=== PATIENT | female | born 1940 | race Hispanic/Latino ===

== ENCOUNTER → 2019-07-03 | Outpatient (CLI) | payer OTHER | END | disposition home or self-care (01) | LOC: SHCH 09:45 | PROVIDERS: ATTEND Internal Medicine Cardiovascular Disease | DX: I25.10 Atherosclerotic heart disease of native coronary artery without angina pectoris (principal); I25.5 Ischemic cardiomyopathy | CPT/HCPCS: 93306 ==

== ENCOUNTER 2019-08-14 06:52 | Observation (INO) | payer OTHER ==
[2019-08-12 10:24] VITALS: BP 151/62
[2019-08-12 10:35] LABS: BASOPHILS % (AUTO) 0.6 % (0.0-5.0); HEMATOCRIT 39.9 % (36-48); LYMPHOCYTES % (AUTO) 30.3 % (21.0-51.0); MEAN CORPUSCULAR HEMOGLOBIN 29.5 pg (27.0-33.0); MEAN CORPUSCULAR HGB CONC 31.8 g/dL (32.0-36.0); MEAN CORPUSCULAR VOLUME 92.6 fL (79-99); MONOCYTES % (AUTO) 10.5 % (3.0-13.0); NEUTROPHILS % (AUTO) 56.3 % (40.0-77.0); PLATELET COUNT (AUTO) 196 K/uL (130-400); RED BLOOD CELL COUNT(AUTO) 4.31 MIL/uL (4.00-5.50); RED CELL DISTRIBUTION WIDTH 12.6 % (11.0-15.5); WHITE BLOOD COUNT (AUTO) 6.6 K/uL (4.8-10.8)
[2019-08-12 10:44] LABS: CREATININE 1.2 mg/dL (0.5-1.5); POTASSIUM 4.6 mmol/L (3.5-5.1)
[2019-08-12 10:52] LABS: INR 1.02 (0.85-1.15); PARTIAL THROMBOPLASTIN TIME 28.2 SEC (26.3-35.5); PROTHROMBIN TIME 10.7 SEC (9.6-11.6)
[~2019-08-14] VITALS: Ht 152.4 cm; Wt 63.1 kg
[2019-08-14] VITALS (12 sets, daily range): BP systolic 112–163; BP diastolic 54–86
[~2019-08-14 06:52] MED LIST: AMLO5TAB9 PO; ASPI-555 PO; LOSA100T58 PO; METF-444 PO; METO-391 PO; ROSU20TA31 PO; SODIUM CHLORIDE 0.9% 1000ML 1,000 ML IV SCH
--- NOTE | 2019-08-14 07:05 | NUR ---
PROCEDURE PT HERE FOR PROCEDURE. NERVOUS. DENIES ANY PAIN, SOB. FAMILY AT BEDSIDE.
[2019-08-14] MEDS ORDERED: LIDOCAINE HCL 2% 20ML ONE (09:59)
[2019-08-14] MEDS ORDERED: MIDAZOLAM HCL 1 MG/ML 2ML VIAL ONE (09:59)
[2019-08-14] MEDS ORDERED: MEPERIDINE-PF 25 MG/ML SYG ONE (09:59)
[2019-08-14] MEDS ORDERED: HEPARIN SODIUM 1000UNIT/ML 10ML VIAL ONE (09:59)
[2019-08-14] MEDS ORDERED: LIDOCAINE PF 2% 5ML ABBOJECT ONE (13:48)
[2019-08-14] MEDS ORDERED: IOHEXOL-350 50ML VIAL IV ONE (13:53)
[2019-08-14] MEDS ORDERED: PROTAMINE SULFATE 10 MG/ML 25ML VIAL IV ONE (14:01)
--- NOTE | 2019-08-14 14:45 | NUR ---
REPORT HANDOFF COMMUNICATION RECEIVED FROM JAMILAH ZAIDI RN AT BEDSIDE USING SBAR. PATIENT LAYING IN BED WAITING TO BE TRANSFERRED TO PROPERTY AND CASUALTY INSURANCE AGENT. PATIENT'S DAUGHTER AT BEDSIDE. Addendum: 08/14/19 at 1618 by AMAURI RAMÍREZ RN RN WRONG PATIENT
--- NOTE | 2019-08-14 15:00 | NUR ---
PATIENT ARRIVED PATIENT BROUGHT TO DAY PATIENT VIA BED FROM PSYCHIATRIC SECURITY NURSE BY SNEHAL SALMON. PATIENT AAOX3, RESPIRATIONS UNLABORED, VITAL SIGNS STABLE, DENIES ANY PAIN. DRESSING TO RIGHT GROIN DRY/INTACT. NO HEMATOMA, NO DRAINAGE NOTED, AREA SOFT AND NONTENDER. FAMILY AT BEDSIDE.
--- NOTE | 2019-08-14 15:30 | NUR ---
DR SORIANO CALLED DR SORIANO AND INFORMED HIM THAT PATIENT IS BEING ADMITTED UNDER HIS CARE AND THAT SHE WILL BE IN ROOM 227, DR SORIANO VERBALIZED UNDERSTANDING.
--- NOTE | 2019-08-14 15:35 | NUR ---
REPORT GIVEN CALLED REPORT TO ANDREA KRAMER RN AND GAVE REPORT USING SBAR, ALL QUESTIONS CONCERNS ADDRESSED REGARDING PT STATUA
--- NOTE | 2019-08-14 16:00 | NUR ---
PATIENT TRANSFERRED PATIENT TRANSFERRED TO 227, PATIENT AAOX3. DRESSING TO RIGHT GROIN DRY/INTACT.NO HEMATOMA NO DRAINAGE NOTED. ANDREA KRAMER RN WITH PATIENT AT BEDSIDE.
--- NOTE | 2019-08-14 16:13 | NUR ---
RECEIVED TO TELE FROM STONEWORK SUPERVISOR PT ALERT, AWAKE, ORIENTED, LAYING FLAT IN BED. VS STABLE. RIGHT GROIN ASSESSED, NO SIGNS OF BLEEDING. DRESSING INTACT. PERIPHERAL PULSES PALPABLE, ORIENTED TO ROOM. PT AND FAMILY AWARE PT IS FLAT ON BED REST UNTIL 18:15PM CALL LIGHT WITHIN REACH. WILL CONTINUE TO MONITOR
[2019-08-14] MEDS: METFORMIN HCL 500 MG TABLET PO SCH (17:00)
[2019-08-14] MEDS: METOPROLOL TARTRATE 50 MG TAB PO SCH (20:42)
[2019-08-14] MEDS ORDERED: ATORVASTATIN CALCIUM 40 MG TABLET PO SCH (21:00)
[2019-08-14] MEDS ORDERED: ASPIRIN 81 MG EC TAB PO SCH (21:00)
[2019-08-15 04:25] VITALS: BP 134/80
[2019-08-15] MEDS: METFORMIN HCL 500 MG TABLET PO SCH (08:00)
[2019-08-15 08:04] VITALS: BP 132/68
[2019-08-15] MEDS: METOPROLOL TARTRATE 50 MG TAB PO SCH (08:37)
--- NOTE | 2019-08-15 08:44 | NUR ---
LEON CONDON, IN ROOM SPEAKING WITH PT. RE:PROCEDURE FINDINGS AND PLAN OF CARE; QUESTIONS ANSWERED BY Fabienne
[2019-08-15] MEDS ORDERED: AMLODIPINE BESYLATE 5 MG TAB PO SCH (09:00)
[2019-08-15] MEDS ORDERED: LOSARTAN 100 MG TABLET PO SCH (09:00)
[2019-08-15 11:16] VITALS: BP 124/55
--- NOTE | 2019-08-15 15:30 | NUR ---
HL REMOVED, CATHETER INTACT, DISCHARGE INSTRUCTIONS GIVEN TO PT. AND FAMILY MEMBERS AT BEDSIDE, VERBALIZED MUTUAL UNDERSTANDING.
== END 2019-08-15 15:41 | disposition home or self-care (01) ==
LOC: DAH 06:52 → DAHIP 06:53 → DAH 06:53 → 2DH 15:54
PROVIDERS: ADMIT Internal Medicine; ATTEND Internal Medicine
DX: I49.3 Ventricular premature depolarization (principal); I48.91 Unspecified atrial fibrillation; E11.9 Type 2 diabetes mellitus without complications; E78.5 Hyperlipidemia, unspecified; I10 Essential (primary) hypertension; I25.10 Atherosclerotic heart disease of native coronary artery without angina pectoris; I25.2 Old myocardial infarction; Z95.0 Presence of cardiac pacemaker; Z79.82 Long term (current) use of aspirin; Z79.899 Other long term (current) drug therapy; Z88.0 Allergy status to penicillin; Z88.8 Allergy status to other drugs, medicaments and biological substances
CPT/HCPCS: 36415; 80048; 82948; 85025; 85347; 85610; 85730; 93005; 93654; 99156; 99157; A4606; C1730; C1760; C1894; G0378; J1644; J2001; J2175; J2250; J2720; J3490; J7030; Q9967

== ENCOUNTER 2022-08-07 20:21 | Emergency (ER) | payer OTHER ==
[~2022-08-07] VITALS: Ht 157.5 cm; Wt 64.9 kg
[~2022-08-07 20:21] MED LIST changes: +AMLO-257 PO; -AMLO5TAB9 PO; -ASPI-555 PO; +ASPI-556 PO; -SODIUM CHLORIDE 0.9% 1000ML 1,000 ML IV SCH
[2022-08-07 20:53] VITALS: BP 130/65
[2022-08-07 21:43] LABS: BASOPHILS % (AUTO) 0.6 % (0.0-5.0); EOSINOPHILS % (AUTO) 0.9 % (0.0-8.0); HEMATOCRIT 38.4 % (36-48); LYMPHOCYTES % (AUTO) 21.6 % (21.0-51.0); MEAN CORPUSCULAR HEMOGLOBIN 30.1 pg (27.0-33.0); MEAN CORPUSCULAR VOLUME 94.1 fL (79-99); MONOCYTES % (AUTO) 7.9 % (3.0-13.0); NEUTROPHILS % (AUTO) 68.8 % (40.0-77.0); PLATELET COUNT (AUTO) 167 K/uL (130-400); RED BLOOD CELL COUNT(AUTO) 4.08 MIL/uL (4.00-5.50); RED CELL DISTRIBUTION WIDTH 12.3 % (11.0-15.5); WHITE BLOOD COUNT (AUTO) 8.2 K/uL (4.8-10.8)
[2022-08-07 21:57] LABS: ALBUMIN 4.1 g/dL (3.5-5.0); CREATININE 1.7 mg/dL (0.5-1.5); POTASSIUM 5.2 mmol/L (3.5-5.1); TOTAL PROTEIN, SERUM 8.6 g/dL (6.0-8.3)
[2022-08-07] MEDS ORDERED: SODIUM ZIRCONIUM CYCLOSILICATE 5 GM POWD.PACK PO SCH (22:30)
[2022-08-08] MEDS ORDERED: ISOS60TA77 PO (15:41)
[2022-08-08] MEDS ORDERED: DRON400T7 PO (15:41)
[2022-08-08] MEDS ORDERED: SACU1TAB PO (15:41)
== END 2022-08-07 22:52 | disposition home or self-care (01) ==
LOC: EDH 20:21
DX: E87.5 Hyperkalemia (principal); N28.9 Disorder of kidney and ureter, unspecified
CPT/HCPCS: 36415; 80053; 85025

== ENCOUNTER 2022-08-09 06:44 | Day surgery (SDC) | payer OTHER ==
[2022-08-07 15:25] LABS: BASOPHILS % (AUTO) 0.8 % (0.0-5.0); EOSINOPHILS % (AUTO) 3.4 % (0.0-8.0); HEMATOCRIT 40.4 % (36-48); MEAN CORPUSCULAR HEMOGLOBIN 30.2 pg (27.0-33.0); MEAN CORPUSCULAR HGB CONC 31.7 g/dL (32.0-36.0); MEAN CORPUSCULAR VOLUME 95.3 fL (79-99); MONOCYTES % (AUTO) 12.2 % (3.0-13.0); NEUTROPHILS % (AUTO) 53.3 % (40.0-77.0); PLATELET COUNT (AUTO) 172 K/uL (130-400); RED BLOOD CELL COUNT(AUTO) 4.24 MIL/uL (4.00-5.50); RED CELL DISTRIBUTION WIDTH 12.5 % (11.0-15.5); WHITE BLOOD COUNT (AUTO) 7.1 K/uL (4.8-10.8)
[2022-08-07 15:35] LABS: INR 1.01 (0.85-1.15)
[2022-08-07 15:36] LABS: PARTIAL THROMBOPLASTIN TIME 30.2 SEC (26.3-35.5)
[2022-08-07 16:01] LABS: CREATININE 1.8 mg/dL (0.5-1.5)
[2022-08-07 16:06] LABS: POTASSIUM 6.4 mmol/L (3.5-5.1)
[2022-08-08 15:36] VITALS: BP 113/59
[~2022-08-09] VITALS: Ht 152.4 cm; Wt 64.8 kg
[2022-08-09] VITALS (13 sets, daily range): BP systolic 93–131; BP diastolic 33–56
[~2022-08-09 06:44] MED LIST changes: -AMLO-257 PO; +DRON400T7 PO; +ISOS60TA77 PO; -LOSA100T58 PO; -METF-444 PO; +SACU1TAB PO
[2022-08-09 07:29] LABS: CREATININE 1.9 mg/dL (0.5-1.5); POTASSIUM 4.4 mmol/L (3.5-5.1)
[2022-08-09] MEDS ORDERED: VANCOMYCIN 1G/250ML KIT 250 ML IV SCH (08:00)
[2022-08-09] MEDS ORDERED: LIDOCAINE HCL 1% 20 ML VIAL ONE (08:55)
[2022-08-09] MEDS ORDERED: MIDAZOLAM HCL 1 MG/ML 2ML VIAL ONE ×2 (08:56→09:34)
[2022-08-09] MEDS ORDERED: BUPIVACAINE/PF 0.25% 30ML VIAL IJ ONE (08:56)
[2022-08-09] MEDS ORDERED: MEPERIDINE-PF 25 MG/ML SYG ONE ×2 (08:56→09:34)
[2022-08-09] MEDS ORDERED: 0.9%NACL 1000ML 1,000 ML IV ONE (09:20)
[2022-08-09] MEDS ORDERED: BACITRACIN 1 EACH PACKET TP ONE (09:55)
[2022-08-09] MEDS ORDERED: TRAM50TA4 PO (10:19)
[2022-08-09] MEDS ORDERED: ACETAMINOPHEN 500 MG TABLET PO PRN (10:30)
[2022-08-09] MEDS ORDERED: ACETAMINOPHEN WITH CODEINE 1 TAB TAB PO PRN (10:30)
== END 2022-08-09 14:15 | disposition home or self-care (01) ==
LOC: DAH 06:44
PROVIDERS: ATTEND Internal Medicine Cardiovascular Disease
DX: T82.191A Other mechanical complication of cardiac pulse generator (battery), initial encounter (principal); I25.5 Ischemic cardiomyopathy; I44.7 Left bundle-branch block, unspecified; I25.10 Atherosclerotic heart disease of native coronary artery without angina pectoris; E11.22 Type 2 diabetes mellitus with diabetic chronic kidney disease; I13.0 Hypertensive heart and chronic kidney disease with heart failure and stage 1 through stage 4 chronic kidney disease, or unspecified chronic kidney disease; N18.9 Chronic kidney disease, unspecified; I50.43 Acute on chronic combined systolic (congestive) and diastolic (congestive) heart failure; I49.3 Ventricular premature depolarization; I25.2 Old myocardial infarction; E78.5 Hyperlipidemia, unspecified; Z79.82 Long term (current) use of aspirin; Z82.49 Family history of ischemic heart disease and other diseases of the circulatory system; Z83.3 Family history of diabetes mellitus; Z79.899 Other long term (current) drug therapy; Z88.0 Allergy status to penicillin; Z98.890 Other specified postprocedural states; Y83.8 Other surgical procedures as the cause of abnormal reaction of the patient, or of later complication, without mention of misadventure at the time of the procedure; Y92.89 Other specified places as the place of occurrence of the external cause; Z79.01 Long term (current) use of anticoagulants
CPT/HCPCS: 80048 ×2; 85025; 85610; 85730; 36415 ×2; 93005; 33264; 82948; C1882; J7030; J3490; J2250; J3370; J2175; A4215; A6251; A4222; A4221; A4663; A4216; A6258; A4606; A4223 ×3; 99156; 99157

== ENCOUNTER → 2022-08-22 | Outpatient (CLI) | payer OTHER ==
[~2022-08-22] MED LIST changes: +TRAM50TA4 PO
[2022-08-22 12:34] LABS: CREATININE 1.3 mg/dL (0.5-1.5)
== END | disposition home or self-care (01) ==
LOC: LAB 10:14
PROVIDERS: ATTEND Internal Medicine Cardiovascular Disease
DX: E78.5 Hyperlipidemia, unspecified (principal)
CPT/HCPCS: 36415; 80048